=== PATIENT | female | born 2000 | race Caucasian/White ===

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

== ENCOUNTER 2020-10-29 14:40 | Emergency (ER) | payer OTHER ==
[~2020-10-29 14:40] MED LIST: BENTYL 20MG TAB20 MG PO; CARAFATE1 GM PO; DELSYM30 MG/5 ML PO; IBUPROFEN400 MG PO; PROTONIX40 MG PO; Voltaren Gel 1 % TOP; ZOFRAN ODT 4 MG4 MG PO; ZOFRAN4 MG PO; ZYRTEC10 MG PO
== END 2020-10-29 15:32 | disposition left against medical advice (07) ==
LOC: ER1 14:40
DX: R11.10 Vomiting, unspecified (principal); Z53.21 Procedure and treatment not carried out due to patient leaving prior to being seen by health care provider

== ENCOUNTER 2020-11-21 00:10 | Emergency (ER) | payer OTHER ==
[2020-11-21 04:28] LABS: HEMOGLOBIN 12.6 gm/dl (12.3-15.3); RED BLOOD COUNT 4.07 M/UL (4.00-5.10); WHITE BLOOD COUNT 9.1 K/UL (4.5-11.0)
[2020-11-21 04:47] LABS: BUN/CREATININE RATIO 17 (0-10)
[2020-11-21] MEDS ORDERED: CEPHALEXIN500 MG PO (05:19)
[2020-11-21] MEDS ORDERED: REGLAN10 MG PO (05:19)
== END 2020-11-21 05:35 | disposition home or self-care (01) ==
LOC: ER1 00:10
PROVIDERS: Family Medicine
DX: O99.891 Other specified diseases and conditions complicating pregnancy (principal); R82.81 Pyuria; Z3A.10 10 weeks gestation of pregnancy
CPT/HCPCS: 80053; 81001; 84702; 85025; 87086; 96374; 99283; J2765

== ENCOUNTER 2021-02-05 13:00 | Emergency (ER) | payer OTHER ==
[~2021-02-05 13:00] MED LIST changes: +CEPHALEXIN500 MG PO; +REGLAN10 MG PO
[2021-02-05 15:21] LABS: HEMOGLOBIN 10.7 gm/dl (12.3-15.3); RED BLOOD COUNT 3.51 M/UL (4.00-5.10); WHITE BLOOD COUNT 10.1 K/UL (4.5-11.0)
[2021-02-05 15:42] LABS: BUN/CREATININE RATIO 7 (0-10)
== END 2021-02-05 18:43 | disposition home or self-care (01) ==
LOC: ER1 13:00
PROVIDERS: Physician Assistant Medical
DX: O99.891 Other specified diseases and conditions complicating pregnancy (principal); R07.9 Chest pain, unspecified; R55 Syncope and collapse; O99.331 Smoking (tobacco) complicating pregnancy, first trimester; F17.290 Nicotine dependence, other tobacco product, uncomplicated; Z3A.31 31 weeks gestation of pregnancy
CPT/HCPCS: 76805; 80053; 81001; 85025; 93005; 99284

== ENCOUNTER 2021-02-14 13:59 | Outpatient (CLI) | payer OTHER | END 2021-02-14 19:30 | disposition home or self-care (01) | LOC: GENOP 13:59 | DX: O42.90 Premature rupture of membranes, unspecified as to length of time between rupture and onset of labor, unspecified weeks of gestation (principal); O26.899 Other specified pregnancy related conditions, unspecified trimester | CPT/HCPCS: 83518; G0463 ==

== ENCOUNTER 2021-04-14 00:53 | Outpatient (CLI) | payer OTHER | END 2021-04-14 08:56 | disposition home or self-care (01) | LOC: GENOP 00:53 | DX: O99.891 Other specified diseases and conditions complicating pregnancy (principal); M54.5 Low back pain; R11.0 Nausea; O99.343 Other mental disorders complicating pregnancy, third trimester; F41.9 Anxiety disorder, unspecified; Z3A.30 30 weeks gestation of pregnancy | CPT/HCPCS: 81001; 82731; 96360; 96361; J7120 ==

== ENCOUNTER 2021-04-23 08:15 | Outpatient (CLI) | payer OTHER | END 2021-04-23 11:12 | disposition home or self-care (01) | LOC: GENOP 08:15 | DX: O47.03 False labor before 37 completed weeks of gestation, third trimester (principal); O99.343 Other mental disorders complicating pregnancy, third trimester; F41.9 Anxiety disorder, unspecified; Z87.891 Personal history of nicotine dependence; Z3A.31 31 weeks gestation of pregnancy | CPT/HCPCS: 81001; 82731; 96360; J7120 ==

== ENCOUNTER 2021-05-07 06:21 | Outpatient (CLI) | payer OTHER | END 2021-05-07 11:42 | disposition home or self-care (01) | LOC: GENOP 06:21 | DX: O47.03 False labor before 37 completed weeks of gestation, third trimester (principal); O99.333 Smoking (tobacco) complicating pregnancy, third trimester; F17.290 Nicotine dependence, other tobacco product, uncomplicated; O99.343 Other mental disorders complicating pregnancy, third trimester; F41.9 Anxiety disorder, unspecified; O99.353 Diseases of the nervous system complicating pregnancy, third trimester; G43.909 Migraine, unspecified, not intractable, without status migrainosus; Z3A.33 33 weeks gestation of pregnancy | CPT/HCPCS: 82731; 96360; J7120 ==

== ENCOUNTER 2021-06-04 04:24 | Outpatient (CLI) | payer OTHER | END 2021-06-04 06:16 | disposition home or self-care (01) | LOC: GENOP 04:24 | DX: O99.891 Other specified diseases and conditions complicating pregnancy (principal); M54.9 Dorsalgia, unspecified; Z3A.22 22 weeks gestation of pregnancy | CPT/HCPCS: 81001; G0463 ==

== ENCOUNTER 2021-06-13 16:25 | Inpatient (IN) | payer OTHER ==
[~2021-06-13] VITALS: Ht 160 cm; Wt 72.1 kg
[2021-06-13 17:47] LABS: HEMOGLOBIN 10.5 gm/dl (12.3-15.3); RED BLOOD COUNT 4.07 M/UL (4.00-5.10); WHITE BLOOD COUNT 8.5 K/UL (4.5-11.0)
[2021-06-13] MEDS ORDERED: FAMOTIDINE20 MG PO (17:52)
[2021-06-13] MEDS ORDERED: IRON325 M1 PO ×2 (17:52→17:59)
[2021-06-13] MEDS ORDERED: PEPCID20 MG PO (17:58)
[2021-06-13] MEDS ORDERED: PRENATAL TABLE1 EAC1 PO (17:58)
[2021-06-14] MEDS ORDERED: HYDROCODON-ACE1 EAC4 PO (22:01)
[2021-06-14] MEDS ORDERED: IBUPROFEN600 MG PO (22:01)
[2021-06-14] MEDS ORDERED: DOCUSATE SODIU100 MG PO (22:01)
[2021-06-15 07:04] LABS: HEMOGLOBIN 9.3 gm/dl (12.3-15.3)
== END 2021-06-16 16:01 | disposition home or self-care (01) | DRG 787 ==
LOC: GENOP 16:25 → OB 17:26
PROVIDERS: Obstetrics & Gynecology; ADMIT Obstetrics & Gynecology
PROC: 10H073Z Insertion of Monitoring Electrode into Products of Conception, Via Natural or Artificial Opening (ICD-10-PCS; 2021-06-14)
PROC: 4A1H7CZ Monitoring of Products of Conception, Cardiac Rate, Via Natural or Artificial Opening (ICD-10-PCS; 2021-06-14)
PROC: 10H07YZ Insertion of Other Device into Products of Conception, Via Natural or Artificial Opening (ICD-10-PCS; 2021-06-14)
PROC: 10D00Z1 Extraction of Products of Conception, Low, Open Approach (ICD-10-PCS; principal; 2021-06-14 22:24)
DX: O62.0 Primary inadequate contractions (principal); O72.1 Other immediate postpartum hemorrhage; Z37.0 Single live birth; O99.02 Anemia complicating childbirth; D64.9 Anemia, unspecified; Z20.822 Contact with and (suspected) exposure to COVID-19; Z3A.39 39 weeks gestation of pregnancy
CPT/HCPCS: 81001; 82800; 85014; 85018; 85025; 90707; 96372; C9113; J0290; J0595; J0690; J1580; J2001; J2210; J2250; J2274; J2405; J2550; J2590; J2795; J3010; J7120; U0002

== ENCOUNTER → 2021-11-29 | Outpatient (CLI) | payer OTHER ==
[~2021-11-29] MED LIST changes: +DOCUSATE SODIU100 MG PO; +FAMOTIDINE20 MG PO; +HYDROCODON-ACE1 EAC4 PO; +IBUPROFEN600 MG PO; +IRON325 M1 PO; +PEPCID20 MG PO; +PRENATAL TABLE1 EAC1 PO
== END ==
LOC: US 14:30
DX: E04.9 Nontoxic goiter, unspecified (principal)
CPT/HCPCS: 76536

== ENCOUNTER 2022-07-19 08:24 | Emergency (ER) | payer OTHER ==
[2022-07-19 08:57] LABS: HEMOGLOBIN 12.8 gm/dl (12.3-15.3); RED BLOOD COUNT 4.73 M/UL (4.00-5.10); WHITE BLOOD COUNT 5.1 K/UL (4.5-11.0)
[2022-07-19 09:12] LABS: BUN/CREATININE RATIO 13 (0-10)
[2022-07-19] MEDS ORDERED: OMNICEF 300 MG300 MG PO (10:27)
== END 2022-07-19 10:42 | disposition home or self-care (01) ==
LOC: ER1 08:24
PROVIDERS: Student in an Organized Health Care Education/Training Program
DX: N30.00 Acute cystitis without hematuria (principal)
CPT/HCPCS: 80053; 81001; 83690; 84703; 85025; 87086; 96374; 96375; 99284; J1885; J2765; Q9967